=== PATIENT | female | born 1970 | race Caucasian/White ===

== ENCOUNTER 2018-03-11 09:23 | Outpatient (CLI) ==
[2013-06-19 15:57] VITALS: BMI 24.2
== END 2018-03-11 09:24 | disposition home or self-care (01) ==
LOC: FCC-LAB 09:23
PROVIDERS: ATTEND Family Medicine
DX: J02.9 Acute pharyngitis, unspecified (principal)
CPT/HCPCS: 87804

== ENCOUNTER 2018-08-14 15:12 | Emergency (ER) | payer OTHER ==
[2018-08-14 15:19] VITALS: BP 184/96; TEMP 99.5; BMI 25.0
--- NOTE | 2018-08-14 15:57 | US ---
EXAM: Left lower extremity venous Doppler History: Left lower extremity pain. Technique: Multiple sonographic images through the left lower extremity were obtained. Color duplex Doppler was used to interrogate vascular flow. Findings: The left common femoral, greater saphenous, profunda, superficial femoral, popliteal, radha scott, posterior tibial and anterior tibial veins demonstrate spontaneous flow with normal compression and normal augmentation. Impression: No sonographic evidence for deep venous thrombosis
--- NOTE | 2018-08-14 16:49 | ED.PDOC ---
General ED Provider: Dr. NEREIDA REYES Chief Complaint: Hypertension Stated Complaint: hypertension Time Seen by Physician: 15:15 (seen with ray at all times ) Mode of Arrival: Walk-In Information Source: Patient Exam Limitations: No limitations Primary Care Provider: JEAN BREWER Nursing and Triage Documentation Reviewed and Agree: Yes Does patient meet sepsis criteria?: No System Inflammatory Response Syndrome: Not Applicable Sepsis Protocol: For patient's 13 years and over: Temp is 96.8 and below OR 101 and greater Pulse >90 BPM Resp >20/minute Acutely Altered Mental Status Are patient's symptoms suggestive of a new infection, such as: -Pneumonia -Skin, Soft Tissue -Endocarditis -UTI -Bone, Joint Infection -Implantable Device -Acute Abdominal Infection -Wound Infection -Meningitis -Blood Stream Catheter Infection -Unknown Cardiovascular Complaint Exam - Hypertension Complaint/Exam Onset/Duration: 2 hrs ago Symptoms Are: Resolved Timing: Intermittent Reported B/P Prior to Arrival: 180/90 Aggravating: Reports: None Alleviating: Reports: Rest Associated Signs and Symptoms: Denies: Chest pain, Vision changes, Anxiety, Recent stress, Headache, Numbness, Tingling, Weakness, Dizziness, Short of air, Swelling Related History: Reports: Rx noncompliance Cardiac Risk Factors: Reports: None Recent Change in Medications: No A/V Nicking: No Papilledema Present: No JVD Present: No Carotid Bruit Present: No Femoral Pulses Bounding: No Differential Diagnoses: Hyperthyroidism, Renal Disease Quality Indicator For Non-Traumatic Chest Pain/Syncope: EKG Performed Review of Systems - Review Of Systems Constitutional: Reports: Malaise Eyes: Reports: No symptoms Ears, Nose, Mouth, Throat: Reports: No symptoms Respiratory: Reports: No symptoms Cardiac: Reports: No symptoms GI: Reports: No symptoms : Reports: No symptoms Musculoskeletal: Reports: No symptoms Skin: Reports: No symptoms Neurological: Reports: No symptoms Endocrine: Reports: No symptoms Hematologic/Lymphatic: Reports: No symptoms All Other Systems: Reviewed and Negative Past Medical History - Past Medical History Previously Healthy: Yes Endocrine: Reports: None Cardiovascular: Reports: None Respiratory: Reports: None Hematological: Reports: None Gastrointestinal: Reports: None Genitourinary: Reports: None Neuro/Psych: Reports: Depression Musculoskeletal: Reports: None Cancer: Reports: None Last Menstrual Period: ABLASION - Surgical History General Surgical History: Reports: None - Family History Family History: Reports: None - Social History Smoking Status: Never smoker Hx Substance Use: No Alcohol Screening: None Physical Exam - Physical Exam Appearance: Well-appearing, No pain distress, Well-nourished Eyes: REHAN, EOMI, Conjunctiva clear ENT: Ears normal, Nose normal, Oropharynx normal Respiratory: Airway patent, Breath sounds clear, Breath sounds equal, Respirations nonlabored Cardiovascular: RRR, Pulses normal, No rub, No murmur GI/: Soft, Nontender, No masses, Bowel sounds normal, No Organomegaly Musculoskeletal: Normal strength, ROM intact, No edema, No calf tenderness Skin: Warm, Dry, Normal color Neurological: Sensation intact, Motor intact, Reflexes intact, Cranial nerves intact, Alert, Oriented Psychiatric: Affect appropriate, Mood appropriate Interpretation - Curriculum Assistant Principal Rate: Normal Rhythm: Sinus Ectopy: None - EKG Interpretation Rate: Normal Rhythm: Sinus Ectopy: None [place]: NL ST Segment: Normal Re-Evaluation - Re-Evaluation Time of Re-Evaluation: 16:48 (b/p 120/72) Status: Improved Vital Signs Stable: Yes Pain Level: 0 Appearance: NAD Lungs: Clear Skin: Warm and Dry Neuro: Alert and Oriented X3 CV: RRR Critical Care Note - Critical Care Note Total Time (mins): 0 Course - Course Hematology/Chemistry: 08/14/18 15:32 08/14/18 15:32 Orders, Labs, Meds: Lab Review 08/14/18 08/14/18 08/14/18 15:32 15:32 15:32 WBC 5.67 RBC 3.83 L Hgb 11.2 L Hct 33.5 L MCV 87.5 MCH 29.2 MCHC 33.4 RDW Coeff of Danielle 12.8 Plt Count 205 Immature Gran % (Auto) 0.2 Neut % (Auto) 60.4 Lymph % (Auto) 27.5 [place] % (Auto) 10.8 H Eos % (Auto) 0.7 Baso % (Auto) 0.4 Immature Gran # (Auto) 0.0 Neut # (Auto) 3.4 Lymph # (Auto) 1.6 [place] # (Auto) 0.6 Eos # (Auto) 0.0 Baso # (Auto) 0.0 Sodium 138.3 Potassium 3.90 Chloride 103.3 Carbon Dioxide 29.6 Anion Gap 9.30 BUN 14.4 Creatinine 0.77 Estimated GFR (MDRD) 81.00 BUN/Creatinine Ratio 18.70 Glucose 110.9 H Calcium 8.94 Total Bilirubin 0.20 AST 25.2 ALT 29.4 Alkaline Phosphatase 24.4 L Total Protein 6.25 L Albumin 3.49 L Globulin 2.76 Albumin/Globulin Ratio 1.26 TSH < 0.015 L Free T4 3.00 H Orders Category Date Time Status EKG-(ED ONLY) Stat CARDIO 08/14/18 15:23 Ordered CBC W/ AUTO DIFF Stat LAB 08/14/18 15:32 Completed COMPREHENSIVE METABOLIC PANEL Stat LAB 08/14/18 15:32 Completed FREE T4 (FREE THYROXINE) Stat LAB 08/14/18 15:32 Completed THYROID STIMULATING HORMONE Stat LAB 08/14/18 15:32 Completed U/S VENOUS SCAN LT. LEG Stat RADS 08/14/18 15:24 Completed Vital Signs: Temp Pulse Resp BP Pulse Ox 08/14/18 15:14 99.5 F 102 H 20 184/96 H 97 KRISTI Risk Score KRISTI Risk Score: Risk Score Odds of by 30D 0 0.1 (0.1-0.2) 1 0.3 (0.2-0.3) 2 0.4 (0.3-0.5) 3 0.7 (0.6-0.9) 4 1.2 (1.0-1.5) 5 2.2 (1.9-2.6) 6 3.0 (2.5-3.6) 7 4.8 (3.8-6.1) Departure - Departure Time of Disposition: 16:49 Disposition: HOME SELF-CARE Discharge Problem: Hypertension Qualifiers: Hypertension type: unspecified Qualified Code(s): I10 - Essential (primary) hypertension Instructions: Hypertension (ED) Condition: Good Pt referred to PMD for follow-up: Yes IPMP verified?: No Additional Instructions: Please call your Family Physician as soon as possible to schedule a follow-up appointment. Allergies/Adverse Reactions: Allergies almonds Adverse Reaction (Uncoded 06/19/13 16:51) Home Medications: Ambulatory Orders Levothyroxine Sodium [Synthroid] 50 mcg PO QDAC 06/19/13 Venlafaxine HCl [Effexor] 75 mg PO DAILY 06/19/13
== END 2018-08-14 17:04 | disposition home or self-care (01) ==
LOC: ED 15:12
DX: I10 Essential (primary) hypertension (principal); R53.81 Other malaise; Z79.899 Other long term (current) drug therapy; Z91.14 Patient's other noncompliance with medication regimen
CPT/HCPCS: 36415; 80053; 84439; 84443; 85025; 93005; 93010; 99282

== ENCOUNTER 2018-08-19 09:20 | Outpatient (CLI) | payer OTHER ==
--- NOTE | 2018-08-19 10:02 | US ---
EXAM: Thyroid ultrasound History: Hyperthyroidism Technique: Multiple sonographic images through the thyroid gland were obtained. Color duplex Dopple r was used to interrogate vascular flow. Findings: The right lobe of the thyroid measures 4.9 cm x 2.0 cm x 1.5 cm and demonstrates heterogeneous echote xture with multiple nodules and the largest measuring 0.8 cm. The thyroid isthmus measures 0.4 cm in thickness. The left lobe of the thyroid measures 4.2 cm x 1.2 cm x 1.6 cm demonstrates heterogeneous echotexture with 0.7 cm nodule. The thyroid gland is hypervascular. No extrathyroidal masses are identified. Impression: 1. Heterogeneous hypervascular thyroid gland. Correlate for thyroiditis. 2. Sub-centimeter bilateral thyroid nodules. Recommend follow-up ultrasound in 6 months to document stability.
== END 2018-08-19 09:21 | disposition home or self-care (01) ==
LOC: RAD 09:20
PROVIDERS: ATTEND Internal Medicine
DX: E03.9 Hypothyroidism, unspecified (principal); E04.9 Nontoxic goiter, unspecified

== ENCOUNTER 2018-10-13 09:22 | Outpatient (CLI) | END 2018-10-13 09:23 | disposition home or self-care (01) | LOC: LAB 09:22 | PROVIDERS: ATTEND Internal Medicine Endocrinology, Diabetes & Metabolism | DX: E05.90 Thyrotoxicosis, unspecified without thyrotoxic crisis or storm (principal) | CPT/HCPCS: 36415; 84439; 84443 ==

== ENCOUNTER 2019-02-25 08:11 | Outpatient (CLI) | END 2019-02-25 08:12 | disposition home or self-care (01) | LOC: LAB 08:11 | PROVIDERS: ATTEND Internal Medicine | DX: E05.90 Thyrotoxicosis, unspecified without thyrotoxic crisis or storm (principal) | CPT/HCPCS: 36415; 84439; 84443 ==

== ENCOUNTER 2019-03-19 09:55 | Outpatient (CLI) | END 2019-03-19 09:56 | disposition home or self-care (01) | LOC: LAB 09:55 | PROVIDERS: ATTEND Internal Medicine | DX: E05.00 Thyrotoxicosis with diffuse goiter without thyrotoxic crisis or storm (principal); R00.0 Tachycardia, unspecified; R00.2 Palpitations; F33.2 Major depressive disorder, recurrent severe without psychotic features | CPT/HCPCS: 36415; 84439; 84443; 84481 ==

== ENCOUNTER 2019-07-30 09:25 | Outpatient (CLI) | payer OTHER | END 2019-07-30 09:26 | disposition home or self-care (01) | LOC: LAB 09:25 | PROVIDERS: ATTEND Internal Medicine | DX: E05.90 Thyrotoxicosis, unspecified without thyrotoxic crisis or storm (principal); E03.9 Hypothyroidism, unspecified; Z92.3 Personal history of irradiation | CPT/HCPCS: 36415; 84439; 84443 ==